=== PATIENT | female | born 1965 | race Caucasian/White ===

== ENCOUNTER 2016-09-01 09:10 | Emergency (ER) | payer OTHER ==
[2016-09-01 09:10] VITALS: BMI 34.2
[2016-09-01 09:15] VITALS: BP 147/89; PULSE 67; RESP 18; TEMP 98.5; O2SAT 97
--- NOTE | 2016-09-01 09:35 | ED PDOC ---
HPI: General Adult Time Seen by Provider: 09/01/16 09:25 Chief Complaint (Nursing): Abnormal Skin Integrity Chief Complaint (Provider): Rash History Per: Patient History/Exam Limitations: no limitations Onset/Duration Of Symptoms: Days (1 week) Current Symptoms Are (Timing): Still Present Additional Complaint(s): Pt. had a bump in her R lower abdomen. It got bigger and was painful. Yesterday it burst and stuff came out. Feels better now but wanted it checked out. Pt. denies any pain currently. No weakness, numbness, tingles. No fever. No back pain. Past Medical History Reviewed: Historical Data, Nursing Documentation Vital Signs: Last Vital Signs Temp 98.5 F 09/01/16 09:14 Pulse 67 09/01/16 09:14 Resp 18 09/01/16 09:14 BP 147/89 09/01/16 09:14 Pulse Ox 97 09/01/16 09:14 - Medical History PMH: No Chronic Diseases - Surgical History Surgical History: No Surg Hx - Family History Family History: States: Unknown Family Hx - Living Arrangements Living Arrangements: With Family - Social History Current smoker - smoking cessation education provided: No Alcohol: None Drugs: Denies - Home Medications Home Medications: Ambulatory Orders Medication Instructions Recorded Calcium [Calcium 500] 1,000 mg PO DAILY 02/05/15 Oxycodone HCl/Acetaminophen 5 - 325 mg PO Q4 PRN 02/05/15 [Percocet 325 mg-5 mg] Clindamycin [Cleocin] 300 mg PO QID 7 Days 09/01/16 - Allergies Allergies/Adverse Reactions: Allergies Allergy/AdvReac Type Severity Reaction Status Date / Time No Known Allergies Allergy Verified 11/07/14 13:12 Review of Systems Constitutional: Negative for: Fever, Weakness Cardiovascular: Negative for: Chest Pain, Edema, Light Headedness Respiratory: Negative for: Shortness of Breath Gastrointestinal: Negative for: Abdominal Pain Musculoskeletal: Negative for: Neck Pain, Shoulder Pain, Arm Pain Skin: Positive for: Rash, Lesions Neurological: Negative for: Weakness Physical Exam - Reviewed Nursing Documentation Reviewed: Yes Vital Signs Reviewed: Yes - Physical Exam Appears: Positive for: Well, Non-toxic, No Acute Distress Head Exam: Positive for: ATRAUMATIC, NORMAL INSPECTION, NORMOCEPHALIC Skin: Positive for: Rash Neck: Positive for: Normal, Painless ROM Cardiovascular/Chest: Positive for: Regular Rate, Rhythm Respiratory: Positive for: CNT, Normal Breath Sounds Gastrointestinal/Abdominal: Positive for: Bowel Sounds, Soft, Tenderness (R lower suprapubic area with erythema around a central 2cm diameter indurated area with trace purulent dc from it and scabbing.) Back: Positive for: Normal Inspection. Negative for: L CVA Tenderness, R CVA Tenderness Extremity: Positive for: Normal ROM. Negative for: Tenderness, Pedal Edema Neurologic/Psych: Positive for: Alert, Oriented - ECG O2 Sat by Pulse Oximetry: 97 - Progress ED Course And Treament: 942: Stable. AAOx3. Pain free. Rx clinda on dc. FU with clinic for re- eval. Disposition - Clinical Impression Clinical Impression: Folliculitis, Abscess - Patient ED Disposition Is Patient to be Admitted: No Counseled Patient/Family Regarding: Diagnosis, Need For Followup, Rx Given - Disposition Referrals: [facility], [facility] [Outside] - 09/02/16 Disposition: Routine/Home Disposition Time: 09:43 Condition: STABLE Additional Instructions: Return if not better in 3 days. Prescriptions: Clindamycin [Cleocin] 300 mg PO QID 7 Days Instructions: Abscess (ED), Folliculitis (ED) Print Language: YI
== END 2016-09-01 09:51 | disposition home or self-care (01) ==
LOC: H.ER 09:10
DX: L73.9 Follicular disorder, unspecified (principal)

== ENCOUNTER 2017-06-07 19:35 | Emergency (ER) | payer SELFPAY ==
[2017-06-07 19:35] VITALS: BMI 34.2
[2017-06-07 19:59] VITALS: PULSE 89; RESP 17; TEMP 98.3; O2SAT 96
[2017-06-07 20:25] VITALS: BP 150/84
--- NOTE | 2017-06-07 20:47 | ED PDOC ---
HPI: Hypertension/Hypotension Time Seen by Provider: 06/07/17 20:00 Chief Complaint (Nursing): High Blood Pressure History Per: Patient History/Exam Limitations: no limitations Onset/Duration Of Symptoms: Days Current Symptoms Are (Timing): Still Present Associated Symptoms: denies: Chest Pain, Dyspnea, Dizziness, Blurred Vision, Focal Weakness, Headache Quality Of Symptoms: Asymptomatic Pain Scale Rating Of: 0 Exacerbating Factor(s): Pos: None Additional Complaint(s): Hx of HTN (recently diagnosed) p/w high blood pressure readings, states that she was checking her BP often at the pharmacy, saw a BP reading of 150s systolic and the pharmacist told her to go straight to the ER. Has no complaints: no VALLEJO, CP, SOB, abd pain, etc. States her HTN was recently diagnosed and was being managed with diet and exercise, was getting worried because [facility] doesn't have an appointment with the clinic till mid-June. Past Medical History Reviewed: Historical Data, Nursing Documentation, Vital Signs Vital Signs: Last Vital Signs Temp 98.3 F 06/07/17 19:54 Pulse 89 06/07/17 19:54 Resp 17 06/07/17 19:54 BP 150/84 06/07/17 20:22 Pulse Ox 96 06/07/17 19:54 - Medical History PMH: HTN - Family History Family History: States: Unknown Family Hx - Home Medications Home Medications: Ambulatory Orders Medication Instructions Recorded Calcium [Calcium 500] 1,000 mg PO DAILY 02/05/15 Oxycodone HCl/Acetaminophen 5 - 325 mg PO Q4 PRN 02/05/15 [Percocet 325 mg-5 mg] Clindamycin [Cleocin] 300 mg PO QID 7 Days cap 09/01/16 - Allergies Allergies/Adverse Reactions: Allergies Allergy/AdvReac Type Severity Reaction Status Date / Time No Known Allergies Allergy Verified 11/07/14 13:12 Review of Systems ROS Statement: Except As Marked, All Systems Reviewed And Found Negative Physical Exam - Reviewed Nursing Documentation Reviewed: Yes Vital Signs Reviewed: Yes - Physical Exam Appears: Positive for: Well, Non-toxic, No Acute Distress Head Exam: Positive for: ATRAUMATIC, NORMAL INSPECTION, NORMOCEPHALIC Skin: Positive for: Normal Color, Warm, DRY Eye Exam: Positive for: EOMI, Normal appearance, PERRL ENT: Positive for: Normal ENT Inspection Neck: Positive for: Normal, Painless ROM Cardiovascular/Chest: Positive for: Regular Rate, Rhythm Respiratory: Positive for: CNT, Normal Breath Sounds Gastrointestinal/Abdominal: Positive for: Normal Exam, Bowel Sounds, Soft Back: Positive for: Normal Inspection Extremity: Positive for: Normal ROM Neurologic/Psych: Positive for: Alert, Oriented - ECG O2 Sat by Pulse Oximetry: 96 Pulse Ox Interpretation: Normal Medical Decision Making Medical Decision Making: Hx of early HTN p/w high blood pressure readings. Patient likely anxious, explained that current readings are elevated but she can followup as outpatient. Spoke with family practice resdient Dr. Awad who will discuss case with Dr. Parra for expedited followup. Disposition - Clinical Impression Clinical Impression: Hypertension - Disposition Referrals: [facility] [Outside] Disposition: Routine/Home Disposition Time: 20:49 Condition: IMPROVED Additional Instructions: The family practice resident will reach out to Dr. Parra to schedule an expedited followup. Instructions: High Blood Pressure in Adults, Controlling Your Blood Pressure Through Lifestyle Forms: [facility] (H[place]er) Print Language: CYMRO
== END 2017-06-07 20:48 | disposition home or self-care (01) ==
LOC: H.ER 19:35
DX: I10 Essential (primary) hypertension (principal)